=== PATIENT | female | born 1990 | race Caucasian/White ===

== ENCOUNTER 2016-08-25 02:05 | Emergency (ER) | payer OTHER ==
[~2016-08-25] VITALS: Ht 182.9 cm; Wt 83.9 kg
[2016-08-25 02:15] VITALS: BP 126/77
[2016-08-25] MEDS ORDERED: NKM (02:18)
[2016-08-25] MEDS ORDERED: TdaP Vaccine 0.5ml Syr IM ONE (03:00)
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
[2016-08-25] MEDS ORDERED: IBUPROFEN600 MG ORAL (03:54)
[2016-08-25 04:15] VITALS: BP 124/68
--- NOTE | 2016-08-25 11:44 | Diagnostic Imaging Report ---
Indication: Pain Comparison: None Findings: 3 views of the right ankle obtained. No acute fracture, malalignment, periostitis, or osteochondral defects are identified. Soft tissues are unremarkable. Impression: Negative examination
== END 2016-08-25 04:15 | disposition home or self-care (01) ==
LOC: EMR 02:40
DX: M25.571 Pain in right ankle and joints of right foot (principal); S90.511A Abrasion, right ankle, initial encounter; V09.9XXA Pedestrian injured in unspecified transport accident, initial encounter; Y93.9 Activity, unspecified; Y99.9 Unspecified external cause status; Z23 Encounter for immunization
CPT/HCPCS: 90471; 90715; 96372; 99283